=== PATIENT | female | born 1975 | race African-American/Black ===

== ENCOUNTER 2017-10-17 10:24 | Emergency (ER) | payer SELFPAY ==
[~2017-10-17] VITALS: Ht 162.6 cm; Wt 146.0 kg
[~2017-10-17 10:24] MED LIST: ALBU18HF2 IH; ASPI-1159 PO; ATEN-42 PO; ATOR10TA69 PO; DILT-26 PO; IBUP-2030 PO; METF10002 PO; P20 PO
[2017-10-17] MEDS ORDERED: METHYLPREDNISOLONE SOD SUCC 125 MG/2 ML VIAL IM ONE (14:45)
[2017-10-17] MEDS ORDERED: METHYLPREDNISOLONE SOD SUCC 125 MG/2 ML VIAL IV ONE (14:45)
[2017-10-17] MEDS ORDERED: IPRATROPIUM BROMIDE (0.02%) 0.5MG/2.5ML NEB HHN ONE (14:45)
[2017-10-17 15:12] LABS: BASOPHILS % 0.6 % (0.0-2.0); EOSINOPHILS % 6.2 % (0.0-5.0); HEMATOCRIT. 32.5 % (36.0-48.0); HEMOGLOBIN. 10.1 g/dL (12.0-16.0); LYMPHOCYTES % 24.6 % (20.0-50.0); MEAN CORPUSCULAR HEMOGLOBIN 20.4 pg (28.0-32.0); MEAN CORPUSCULAR VOLUME 65.4 fL (81.0-99.0); MONOCYTES % 10.6 % (2.0-8.0); PLATELET 290 x1000/uL (130-400); RED BLOOD CELL COUNT 4.97 mill/uL (4.2-5.4); RED CELL DISTRIBUTION WIDTH 19.3 % (11.6-14.6)
[2017-10-17 15:28] LABS: CARBON DIOXIDE 27 mEq/L (21-32); CHLORIDE 104 mEq/L (98-107)
[2017-10-17 15:33] LABS: PLATELET ESTIMATE NORMAL
[2017-10-17 15:51] LABS: CLARITY URINE CLOUDY (CLEAR); COLOR URINE YELLOW (YELLOW); KETONES URINE NEGATIVE (NEGATIVE); LEUKOCYTE ESTERASE URINE NEGATIVE (NEGATIVE); NITRITE URINE NEGATIVE (NEGATIVE); OCCULT BLOOD URINE TRACE (NEGATIVE); PROTEIN URINE NEGATIVE (NEGATIVE); SPECIFIC GRAVITY URINE 1.026 (1.005-1.030); UROBILINOGEN URINE 0.2 E.U./dL (0.2-1.0)
[2017-10-17 16:50] VITALS: BP 140/83
== END 2017-10-17 16:53 | disposition home or self-care (01) ==
LOC: ER 12:28
DX: R07.89 Other chest pain (principal); J44.9 Chronic obstructive pulmonary disease, unspecified; R20.0 Anesthesia of skin; E11.65 Type 2 diabetes mellitus with hyperglycemia; I10 Essential (primary) hypertension; D50.9 Iron deficiency anemia, unspecified; F17.210 Nicotine dependence, cigarettes, uncomplicated; F12.90 Cannabis use, unspecified, uncomplicated; Z79.4 Long term (current) use of insulin; Z79.899 Other long term (current) drug therapy; Z88.5 Allergy status to narcotic agent; Z88.0 Allergy status to penicillin; Z79.82 Long term (current) use of aspirin; Z87.39 Personal history of other diseases of the musculoskeletal system and connective tissue
CPT/HCPCS: 36415; 71045; 80053; 81001; 81025; 83880; 84484; 85025; 93005; 94640; 96374; 99285; J2930; Z7610

== ENCOUNTER 2018-04-06 06:46 | Inpatient (IN) | payer OTHER ==
[~2018-04-06] VITALS: Ht 160 cm; Wt 147.0 kg
[~2018-04-06 06:46] MED LIST changes: -METF10002 PO; +METF10004 PO
[2018-04-06] MEDS ORDERED: ALBUTEROL (0.083%) 2.5MG/3ML NEB HHN STA (06:58)
[2018-04-06] MEDS ORDERED: METHYLPREDNISOLONE SOD SUCC 125 MG/2 ML VIAL IV STA (06:58)
[2018-04-06] MEDS ORDERED: IPRATROPIUM BROMIDE (0.02%) 0.5MG/2.5ML NEB HHN STA (06:58)
[2018-04-06] MEDS ORDERED: MAGNESIUM 2 G PREMIX 50 ML IV STA (06:58)
[2018-04-06 07:25] LABS: BASOPHILS % 0.8 % (0.0-2.0); EOSINOPHILS % 7.8 % (0.0-5.0); HEMATOCRIT. 35.1 % (36.0-48.0); HEMOGLOBIN. 11.4 g/dL (12.0-16.0); LYMPHOCYTES % 24.2 % (20.0-50.0); MEAN CORPUSCULAR HEMOGLOBIN 21.6 pg (28.0-32.0); MEAN CORPUSCULAR VOLUME 66.4 fL (81.0-99.0); MEAN PLATELET VOLUME 8.8 fl (7.4-10.4); MONOCYTES % 6.8 % (2.0-8.0); NEUTROPHILS % 60.4 % (40.0-76.0); PLATELET 310 x1000/uL (130-400); RED BLOOD CELL COUNT 5.28 mill/uL (4.2-5.4)
[2018-04-06 07:33] LABS: CHLORIDE 103 mEq/L (98-107)
[2018-04-06 07:36] LABS: PARTIAL THROMBOPLASTIN TIME 24.8 sec (23.4-31.0); PROTHROMBIN TIME 10.3 sec (9.4-11.6)
[2018-04-06 07:51] LABS: HCG SCREEN NEGATIVE
[2018-04-06] MEDS ORDERED: LEVOFLOXACIN 750MG PREMIX 150 ML IV ONE (08:00)
[2018-04-06 08:55] LABS: PLATELET ESTIMATE NORMAL
[2018-04-06 12:00] VITALS: BP_SYST 164; BP_SYST 166; BP_DIAS 86; BP_DIAS 87
[2018-04-06] MEDS ORDERED: DEXTROSE 50% WATER 50ML SYRINGE IV PRN (13:30)
[2018-04-06] MEDS: BLOOD SUGAR DIAGNOSTIC STRIP TEST SCH ×2 (13:35→21:19)
[2018-04-06] MEDS ORDERED: MAGNESIUM/ALUMINUM HYDROXIDE/SIMETHICONE 30ML UDC PO PRN (13:45)
[2018-04-06] MEDS ORDERED: GUAIFENESIN 200MG/10ML SUGAR FREE UDC PO PRN (13:45)
[2018-04-06] MEDS ORDERED: HYDROCODONE/ACETAMINOPHEN 10/325MG TABLET PO PRN (13:45)
[2018-04-06] MEDS ORDERED: ACETAMINOPHEN 325MG TABLET PO PRN (13:45)
[2018-04-06] MEDS ORDERED: ONDANSETRON HCL 4MG/2ML VIAL IV PRN (13:45)
[2018-04-06] MEDS ORDERED: NA PHOS,M-B/NA PHOS,DI-BA ENEMA 118ML PR PRN (13:45)
[2018-04-06] MEDS ORDERED: DOCUSATE SODIUM 100MG CAPSULE PO PRN (13:45)
[2018-04-06] MEDS ORDERED: ACETAMINOPHEN 650MG/20.3ML UDC GT PRN (13:45)
[2018-04-06] MEDS ORDERED: LORAZEPAM 0.5MG TABLET PO PRN (13:45)
[2018-04-06] MEDS ORDERED: HYDROCODONE/ACETAMINOPHEN 5/325MG TABLET PO PRN (13:45)
[2018-04-06] MEDS ORDERED: ACETAMINOPHEN 650MG SUPP PR PRN (13:45)
[2018-04-06] MEDS: INSULIN LISPRO 100 UNITS/ML SUBCUT SCH ×3 (14:10→21:29)
[2018-04-06] MEDS: DILTIAZEM HCL 60MG TABLET PO SCH ×2 (14:13→21:37)
[2018-04-06] MEDS ORDERED: IPRATROPIUM/ALBUTEROL 0.5-3(2.5)MG/3ML NEB HHN PRN (14:30)
[2018-04-06 16:00] VITALS: BP 155/89
[2018-04-06] MEDS ORDERED: ASPIRIN 81MG EC TABLET PO SCH (16:00)
[2018-04-06] MEDS: IPRATROPIUM/ALBUTEROL 0.5-3(2.5)MG/3ML NEB INH SCH ×2 (16:05→20:44)
[2018-04-06] MEDS ORDERED: PNEUMOCOCCAL 23-VAL P-SAC VAC 0.5 ML IM ONE (17:45)
[2018-04-06 18:07] LABS: CREATINE KINASE 98 IU/L (26-192)
[2018-04-06 18:09] LABS: CREATINE KINASE MB FRACTION 1.7 ng/mL (0.5-3.6)
[2018-04-06 20:00] VITALS: BP 127/68
[2018-04-06] MEDS: BUDESONIDE 0.5MG/2ML NEB HHN SCH ×2 (20:43→20:45)
[2018-04-06] MEDS ORDERED: ATORVASTATIN CALCIUM 10MG TABLET PO SCH (21:00)
[2018-04-06] MEDS ORDERED: AMLODIPINE 5MG TABLET PO SCH (21:00)
[2018-04-06 21:42] VITALS: BP 149/85
[2018-04-07] MEDS ORDERED: PREDNISONE 20MG TABLET PO SCH (09:00)
== END 2018-04-06 22:44 | disposition short-term general hospital (02) | DRG 133 ==
LOC: ER 06:46 → EDBEDREQSVC 08:44 → EDBEDREQ 08:44 → 6WST 09:14 → EDBEDREQ 09:17 → ENRESERV 10:09
PROVIDERS: ADMIT Internal Medicine; ATTEND Internal Medicine
DX: J96.00 Acute respiratory failure, unspecified whether with hypoxia or hypercapnia (principal); I11.0 Hypertensive heart disease with heart failure; E11.65 Type 2 diabetes mellitus with hyperglycemia; Z68.43 Body mass index [BMI] 50.0-59.9, adult; I08.1 Rheumatic disorders of both mitral and tricuspid valves; I50.9 Heart failure, unspecified; J44.1 Chronic obstructive pulmonary disease with (acute) exacerbation; G47.33 Obstructive sleep apnea (adult) (pediatric); M19.90 Unspecified osteoarthritis, unspecified site; E66.01 Morbid (severe) obesity due to excess calories; F41.9 Anxiety disorder, unspecified; F10.10 Alcohol abuse, uncomplicated; F17.200 Nicotine dependence, unspecified, uncomplicated; I25.2 Old myocardial infarction; Z79.82 Long term (current) use of aspirin; Z79.4 Long term (current) use of insulin; Z88.0 Allergy status to penicillin; Z90.49 Acquired absence of other specified parts of digestive tract; Z98.891 History of uterine scar from previous surgery; Z79.84 Long term (current) use of oral hypoglycemic drugs
CPT/HCPCS: 36415; 71045; 80053; 82550; 82553; 82962; 83605; 83690; 83880; 84484; 84703; 85025; 85610; 85730; 87040; 93005; 94640; 94644; 97162; J1815; J1956; J2930; J3475; J7611; J7620; J7626

== ENCOUNTER 2018-05-28 20:58 | Emergency (ER) | payer OTHER ==
[~2018-05-28] VITALS: Ht 162.6 cm; Wt 150.0 kg
[~2018-05-28 20:58] MED LIST changes: -ALBU18HF2 IH; -ATEN-42 PO; -IBUP-2030 PO; -METF10004 PO; -P20 PO
[2018-05-28 23:00] LABS: BASOPHILS % 0.5 % (0.0-2.0); HEMATOCRIT. 33.3 % (36.0-48.0); HEMOGLOBIN. 10.5 g/dL (12.0-16.0); LYMPHOCYTES % 25.2 % (20.0-50.0); MEAN CORPUSCULAR HEMOGLOBIN 20.8 pg (28.0-32.0); MEAN PLATELET VOLUME 8.6 fl (7.4-10.4); MONOCYTES % 6.5 % (2.0-8.0); NEUTROPHILS % 59.8 % (40.0-76.0); PLATELET 378 x1000/uL (130-400); RED BLOOD CELL COUNT 5.04 mill/uL (4.2-5.4); RED CELL DISTRIBUTION WIDTH 19.3 % (11.6-14.6)
[2018-05-28 23:28] LABS: PLATELET ESTIMATE NORMAL
[2018-05-28 23:56] LABS: CHLORIDE 106 mEq/L (98-107)
[2018-05-29] MEDS ORDERED: MAGNESIUM/ALUMINUM HYDROXIDE/SIMETHICONE 30ML UDC PO ONE (01:30)
[2018-05-29 02:24] VITALS: BP 169/86
== END 2018-05-29 02:27 | disposition home or self-care (01) ==
LOC: ER 20:58 → CANBEDREQ 05-29 05:11
DX: R07.89 Other chest pain (principal); J44.9 Chronic obstructive pulmonary disease, unspecified; E11.9 Type 2 diabetes mellitus without complications; I10 Essential (primary) hypertension; Z90.49 Acquired absence of other specified parts of digestive tract; Z98.890 Other specified postprocedural states; Z88.0 Allergy status to penicillin; Z79.899 Other long term (current) drug therapy
CPT/HCPCS: 36415; 71045; 80053; 84484; 85025; 93005; 99285; Z7610